=== PATIENT | male | born 1995 | race Caucasian/White ===

== ENCOUNTER 2020-01-17 21:00 | Emergency (ER) | payer SELFPAY ==
[~2020-01-17] VITALS: Ht 188 cm; Wt 90.7 kg
[2020-01-17 21:00] VITALS: BP 138/80
[2020-01-17] MEDS ORDERED: ORPH-16 PO (21:15)
[2020-01-17] MEDS ORDERED: HYDR-3165 PO (21:15)
--- NOTE | 2020-01-17 21:15 | PHYS DOC ---
Past History Past Medical History: No Pertinent History Past Surgical History: No Surgical History Smoking: Cigarettes Additional Smoking Information: Heavy vape Alcohol Use: Rarely Drug Use: None Adult General Chief Complaint Chief Complaint: BACK PAIN OR INJURY HPI HPI 24-year-old male presents with report of low back pain with radiation down left leg which is been ongoing for approximately 1 year. Patient reports his been worse for the past few days. Reports has used [id number] Tylenol without improvement. Patient reports he is unable to stand up due to pain. Denies loss of bowel or bladder. Denies hematuria or dysuria. Denies fever or chills. Denies rash. Review of Systems Review of Systems Constitutional: Denies fever or chills Eyes: Denies redness or eye pain HENT: Denies nasal congestion or sore throat Respiratory: Denies cough or shortness of breath Cardiovascular: Denies chest pain or palpitations GI: Denies abdominal pain, nausea, or vomiting : Denies dysuria or hematuria Musculoskeletal: Reports low back pain with radiation down left leg Integument: Denies rash or skin lesions Neurologic: Denies headache, focal weakness or sensory changes; denies loss of bowel or bladder Complete systems were reviewed and found to be within normal limits, except as documented in this note. Physical Exam Physical Exam Constitutional: Well developed, well nourished, no acute distress, non-toxic appearance HENT: Normocephalic, atraumatic Eyes: Conjunctiva normal, no discharge Neck: Normal range of motion, no tenderness, supple Lungs & Thorax: No respiratory distress, equal chest rise and fall Skin: Warm, dry, no erythema, no rash Back: No midline tenderness, no CVA tenderness, left low lumbar paraspinal tenderness Extremities: No tenderness, ROM intact, no edema Neurologic: Alert and oriented X 3, no focal deficits noted Psychologic: Affect normal, judgment normal EKG EKG [] Radiology/Procedures Radiology/Procedures [] Course & Med Decision Making Course & Med Decision Making Patient presents with acute on chronic low back pain. Now with radiation down left leg consistent for sciatica. No history of known trauma. No midline tenderness appreciated. Afebrile. Denies hematuria or dysuria. No rash appreciated. Denies loss of bowel or bladder. Symptomatic treatment provided. Patient stable for discharge with outpatient follow-up with PCP/pain management. Pain management referral provided. Discussed findings and plan with patient, who acknowledges understanding and agreement. Dragon Disclaimer Dragon Disclaimer This electronic medical record was generated, in whole or in part, using a voice recognition dictation system. Departure Departure: Impression: Primary Impression: Acute exacerbation of chronic low back pain Additional Impression: Sciatica Disposition: 01 HOME, SELF-CARE Condition: STABLE Patient Instructions: Chronic Back Pain, Sciatica, [id number] Additional Instructions: Call Dr. Sean Dinh (Pain management) for further evaluation and treatment of your chronic pain at: [facility] [address] [place] [address], [address] [place] [address] Scripts Prednisone (PREDNISONE) 20 Mg Tablet 2 TAB PO DAILY for Back pain, #8 TAB Start this prescription tomorrow, ThuJanuary 17. Prov: JAIDEN KRUGER DO 01/17/20 Hydrocodone Bit/Acetaminophen (NORCO 5-325 TABLET) 1 Each Tablet 0.5-1 TAB PO Q6HRS PRN for PAIN, #8 TAB Prov: JAIDEN KRUGER DO 01/17/20 Orphenadrine Citrate (ORPHENADRINE CITRATE) 100 Mg Tablet.er 1 TAB PO BID PRN for MUSCLE SPASMS, #14 TAB Prov: JAIDEN KRUGER DO 01/17/20 Problem Qualifiers Additional Impression: Sciatica Laterality: unspecified laterality Qualified Codes: M54.30 - Sciatica, unspecified side JAIDEN KRUGER DO Jan 17, 2020 21:15
[2020-01-17] MEDS ORDERED: PRED20TA PO (21:18)
[2020-01-17] MEDS: DEXAMETHASONE 4 MG TABLET PO ONE (21:30)
[2020-01-17] MEDS: HYDROcodone/APAP 5/325MG 1 TAB TABLET PO ONE (21:30)
== END 2020-01-17 21:30 | disposition home or self-care (01) ==
LOC: ER 21:00
DX: M54.42 Lumbago with sciatica, left side (principal); G89.29 Other chronic pain; F17.210 Nicotine dependence, cigarettes, uncomplicated
CPT/HCPCS: 99283; J8540